=== PATIENT | female | born 1980 | race Two or more races ===

== ENCOUNTER 2020-09-07 11:59 | Day surgery (SDC) | payer OTHER ==
[2020-09-07] MEDS ORDERED: IBU400 MG PO (15:04)
[2020-09-07] MEDS ORDERED: ZITHROMAX500 MG PO (15:04)
== END 2020-09-07 20:00 | disposition home or self-care (01) ==
LOC: CIR.AMB 11:59
PROVIDERS: ATTEND Obstetrics & Gynecology
DX: N84.0 Polyp of corpus uteri (principal)